=== PATIENT | female | born 1945 | race Caucasian/White ===

== ENCOUNTER → 2017-12-07 | Outpatient (CLI) | payer MEDICARE, MEDICAID ==
[~2017-12-07] MED LIST: CHLORTHALIDONE25 MG PO; CLONAZEPAM 0.50.5 M1 PO; COLACE100 MG PO; COUMADIN 2 MG TA2 M1 PO; CYMBALTA60 MG PO; DIOVAN160 MG PO; GEODON 80 MG CA80 MG PO; NEURONTIN600 MG PO; NORVASC5 MG PO; OMEPRAZOLE40 MG PO; OXCARBAZEPINE150 MG PO; VITAMIN D1000 UNI1 PO; WELLBUTRIN XL300 MG PO; ZANTAC 150MG T150 MG PO
== END ==
LOC: M.NUC 11-30 15:56
DX: K31.84 Gastroparesis (principal)

== ENCOUNTER 2018-05-18 12:29 | Inpatient (IN) | payer MEDICARE, MEDICAID ==
[2018-05-18] VITALS (12 sets, daily range): BP systolic 114–159; BP diastolic 38–57
[~2018-05-18] VITALS: Ht 152.4 cm; Wt 79.4 kg
[2018-05-18] MEDS ORDERED: CHLORTHALIDONE25 MG PO (12:49)
[2018-05-18] MEDS ORDERED: WELLBUTRIN XL300 MG PO (12:49)
[2018-05-18] MEDS ORDERED: NORVASC5 MG PO (12:49)
[2018-05-18] MEDS ORDERED: VITAMIN D1000 UNI1 PO (12:49)
[2018-05-18] MEDS ORDERED: OMEPRAZOLE40 MG PO (12:50)
[2018-05-18] MEDS ORDERED: CYMBALTA60 MG PO (12:50)
[2018-05-18] MEDS ORDERED: COLACE100 MG PO (12:50)
[2018-05-18] MEDS ORDERED: NEURONTIN600 MG PO (12:50)
[2018-05-18] MEDS ORDERED: GEODON 80 MG CA80 MG PO (12:51)
[2018-05-18] MEDS ORDERED: DIOVAN160 MG PO (12:51)
[2018-05-18] MEDS ORDERED: ZANTAC 150MG T150 MG PO (12:51)
[2018-05-18] MEDS ORDERED: COUMADIN 2 MG TA2 M1 PO (12:51)
[2018-05-18 13:24] LABS: URINE BILIRUBIN NEGATIVE (Negative); URINE BLOOD NEGATIVE (Negative); URINE CLARITY CLEAR; URINE COLOR YELLOW; URINE GLUCOSE-RANDOM NEGATIVE (Negative); URINE KETONES NEGATIVE (Negative); URINE LEUKOCYTES-REFLEX NEGATIVE (Negative); URINE NITRITE-REFLEX NEGATIVE (Negative); URINE PROTEIN NEGATIVE (Negative); URINE UROBILINOGEN 0.2 E.U./dl (0.2-1.0)
[2018-05-18 13:26] LABS: ABSOLUTE BASOPHILS 0.1 thou/uL (0.0-0.2); ABSOLUTE LYMPHOCYTES 1.8 thou/uL (0.8-5.3); ABSOLUTE MONOCYTES 0.5 thou/uL (0.0-1.2); ABSOLUTE NEUTROPHILS 8.5 thou/uL (1.6-8.1); BASOPHILS 0.6 %; EOSINOPHILS 0.2 %; HEMATOCRIT 32.3 % (37.0-47.0); HEMOGLOBIN 10.5 gm/dL (12.0-15.0); LYMPHOCYTES 16.9 %; MCH 22.7 pg (26.0-34.0); MCHC 32.5 g/dL (28.0-37.0); MCV 69.9 fL (80.0-100.0); MONOCYTES 4.4 %; MPV 6.4 fl. (7.2-11.1); NUCLEATED RBCS 0 /100WBC; PLATELET COUNT* 544 thou/uL (150-400); POLYS 77.9 %; RBC 4.62 mil/uL (4.20-5.00); RDW-CV 21.4 % (10.5-14.5); WBC 10.9 thou/uL (4.0-11.0)
[2018-05-18 13:33] LABS: ANION GAP 7 mmol/L (7-16); BUN 6 mg/dL (7-18); CALCIUM 9.2 mg/dL (8.5-10.1); CHLORIDE 73 mmol/L (98-107); CO2 33 mmol/L (21-32); CREATININE 0.9 mg/dL (0.6-1.3); GLUCOSE 103 mg/dL (70-99)
[2018-05-18 13:34] LABS: POTASSIUM 2.5 mmol/L (3.5-5.1); SODIUM 113 mmol/L (136-145)
[2018-05-18 13:40] LABS: ALBUMIN 3.5 g/dL (3.4-5.0); ALKALINE PHOSPHATASE 95 U/L (46-116); SGOT 20 U/L (15-37); SGPT 18 U/L (30-65); TOTAL BILIRUBIN 0.4 mg/dL (<0.1-1.0); TOTAL PROTEIN 7.2 g/dL (6.4-8.2); TROPONIN-I LEVEL <0.06 ng/mL (<0.06)
[2018-05-18 13:53] LABS: INR 2.7; PROTIME 27.9 Seconds (9.20-11.50)
[2018-05-18 14:02] LABS: ANISOCYTOSIS 1+; HYPOCHROMASIA 1+; MICROCYTES 1+; PLATELET ESTIMATE INCREASED
[2018-05-18 17:43] LABS: POTASSIUM 2.3 mmol/L (3.5-5.1)
[2018-05-18 20:53] LABS: CALCIUM 8.6 mg/dL (8.5-10.1); CREATININE 0.7 mg/dL (0.6-1.3); MAGNESIUM 1.6 mg/dL (1.8-2.4)
[2018-05-18 20:55] LABS: POTASSIUM 2.5 mmol/L (3.5-5.1)
[2018-05-19] VITALS (17 sets, daily range): BP systolic 86–145; BP diastolic 32–58
[2018-05-19 01:55] LABS: CALCIUM 8.8 mg/dL (8.5-10.1); CREATININE 0.6 mg/dL (0.6-1.3); MAGNESIUM 2.1 mg/dL (1.8-2.4)
[2018-05-19 01:56] LABS: POTASSIUM 3.9 mmol/L (3.5-5.1)
[2018-05-19 07:24] LABS: CALCIUM 8.5 mg/dL (8.5-10.1); CREATININE 0.7 mg/dL (0.6-1.3); POTASSIUM 4.8 mmol/L (3.5-5.1)
[2018-05-19 10:31] LABS: CALCIUM 8.6 mg/dL (8.5-10.1); CREATININE 0.7 mg/dL (0.6-1.3); MAGNESIUM 1.8 mg/dL (1.8-2.4); POTASSIUM 4.7 mmol/L (3.5-5.1)
--- NOTE | 2018-05-19 12:33 | EKG ---
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: Donald STEPHENSON : 1945 Requested By: Marcia Munroe Order Number: [id number] MD: Paras Garcia Measurements Intervals Redig Rate: 75 P: 51 ID: 200 QRS: 37 QRSD: 126 T: 39 QT: 442 QTc: 494 Interpretive Statements Sinus rhythm Nonspecific intraventricular conduction delay Abnormal inferior Q waves Borderline repolarization abnormality No previous ECG available for comparison Electronically Signed On 05-19-2018 12:33:05 MACHINE STEAK TENDERIZER by Paras Garcia [email or web address] <ELECTRONICALLY SIGNED> By: Paras Garcia MD, FACC 05/19/18 1233 1242 1242 Paras Garcia MD, FAC /EPI
[2018-05-19 12:56] LABS: CALCIUM 8.6 mg/dL (8.5-10.1); CREATININE 0.6 mg/dL (0.6-1.3); MAGNESIUM 1.9 mg/dL (1.8-2.4); POTASSIUM 4.4 mmol/L (3.5-5.1)
[2018-05-19 16:11] LABS: CALCIUM 8.9 mg/dL (8.5-10.1); CREATININE 0.7 mg/dL (0.6-1.3); MAGNESIUM 1.9 mg/dL (1.8-2.4); POTASSIUM 4.4 mmol/L (3.5-5.1)
[2018-05-19 19:21] LABS: CALCIUM 9.3 mg/dL (8.5-10.1); CREATININE 0.6 mg/dL (0.6-1.3); MAGNESIUM 1.9 mg/dL (1.8-2.4); POTASSIUM 4.5 mmol/L (3.5-5.1)
[2018-05-20] VITALS (10 sets, daily range): BP systolic 93–146; BP diastolic 45–73
[2018-05-20] MEDS ORDERED: OXCARBAZEPINE150 MG PO (10:19)
[2018-05-20] MEDS ORDERED: CYMBALTA60 MG PO (10:20)
[2018-05-20] MEDS ORDERED: CLONAZEPAM 0.50.5 M1 PO (10:21)
[2018-05-21 01:51] VITALS: BP 147/56
[2018-05-21 11:52] VITALS: BP 119/50
[2018-05-21 16:29] VITALS: BP 105/49
[2018-05-21 20:12] VITALS: BP 89/52
[2018-05-22] VITALS (8 sets, daily range): BP systolic 117–165; BP diastolic 48–56
[2018-05-23] VITALS: BP 128/31
[2018-05-23 04:00] VITALS: BP 128/43
[2018-05-23 06:01] LABS: PROTIME 20.6 Seconds (9.20-11.50)
[2018-05-23 08:28] VITALS: BP 138/42
[2018-05-23 11:18] VITALS: BP 138/42
[2018-05-23 11:55] VITALS: BP 138/42
[2018-05-23 12:00] VITALS: BP 132/52
--- NOTE | 2018-05-23 12:57 | CON ---
[facility] [address] [place] [address] CONSULTATION Name: RENATO PARKINSON Room: [address] IN .R.#: [id number] Admission: 05/18/18 Attend Phys: Gorge Allred MD Discharge: Date of : 47 Report #: [id number] THIS REPORT FOR: //name// CC: Gorge Brothers DATE OF SERVICE: 05/19/2018 NEPHROLOGY CONSULTATION CONSULTING PHYSICIAN: Gorge Allred M.D. REASON FOR NEPHROLOGY CONSULTATION: Severe hyponatremia. REASON FOR ADMISSION: Dizziness and weakness for the past 5 days. HISTORY OF PRESENT ILLNESS: This is a 72-year-old female with past medical history of bipolar disorder. She is a poor historian. She states that she has had hyponatremia in the past, which got better with IV fluids; hypertension; TIA; CVA; GERD and atrial fibrillation. She came in with dizziness and weakness for the past 5 days. The patient has also been having a lot of falls at home. She was found to have a sacrococcygeal fracture as well as a right rib fracture, but it was stated that right rib fracture could have been chronic in nature. She states that she drinks a lot of water and she does not eat much at home because she is just not hungry very much. So when she came in to the hospital, she was found to have initially a sodium of 113, which later went down to 111. We do not have a urine osmolality, but her urine sodium was 38. She had to be given some hypertonic saline yesterday and her sodium has improved to 116 this morning. She was also hypokalemic with a potassium of 2.5, which has improved to 4.8 today. In addition to other medications, she takes Geodon, losartan and chlorthalidone at home. She does live at home alone. ALLERGIES: No known drug allergies. REVIEW OF SYSTEMS: As mentioned in the history of present illness and she is just currently feeling very tired. MEDICATIONS: Her home medications, which include, amlodipine, bupropion, chlorthalidone, cholecalciferol, losartan, folic acid, docusate, duloxetine, gabapentin, ranitidine, warfarin and ziprasidone. PAST MEDICAL AND SURGICAL HISTORY: Includes bipolar disorder, hyponatremia, bilateral knee replacement, cholecystectomy, hysterectomy, hypertension, COPD, asthma, strokes and multiple TIAs. FAMILY HISTORY: [place] [address] CONSULTATION Name: RENATO PARKINSON Room: [address]#: [id number] Admission: 05/18/18 Attend Phys: Gorge Allred MD Discharge: Date of : 47 Report #: [id number] SOCIAL HISTORY: She does not smoke, take alcohol or use illicit drugs. PHYSICAL EXAMINATION: VITAL SIGNS: Blood pressure is 113/56, respiratory rate is 14, pulse rate is 77, temperature is 36.8 and pulse ox is 95% on room air. GENERAL: She is awake and alert, just slow to respond. She seems to be oriented x 3. HEAD, EYES, EARS, NOSE AND THROAT: Mucous membranes are moist. NECK: There is no JVD. CHEST: Clear to auscultation bilateral. No crackles or wheezing. CARDIOVASCULAR: S1, S2 normal. No murmurs or rubs. ABDOMEN: Soft, nondistended and nontender. Bowel sounds are present. EXTREMITIES: There is no lower extremity edema, symmetrical lower extremities. NEUROLOGICAL FUNCTION: She is slow to respond. She is moving all her extremities. PSYCHIATRIC: Her affect seems to be quite flat. LABORATORY DATA: Sodium is 116 this morning, it was 113 on admission yesterday and then went down to 111. At 03:00 p.m. yesterday, her was 2.5 when she came in and now it is 4.8. Her hemoglobin is 10.3. Other labs were reviewed and her creatinine was 0.7. Her urine sodium was 38 and serum uric acid was 2.5. IMAGING DATA: Sacrococcygeal x-ray, head CT and chest x-ray were reviewed. Her current inpatient medications, they were also reviewed. ASSESSMENT: 1. Likely emnag-xg-vaxowrb hyponatremia; baseline sodium is not known. Sodium was as low as 111. When she came in yesterday, her sodium was 113. Sodium went down to 111 at 03:00 p.m. yesterday and then went up to 117 after hypertonic saline. So she had to be given some D5 water boluses to bring the sodium down and it is 116 this morning. Poor solute intake and high fluid intake as well as chlorthalidone, ARB, Geodon and Cymbalta contributing. All these medications are on hold for now. Once her sodium is better, we can re-introduce at least Geodon. 2. Hypokalemia, which is because of chlorthalidone as well as poor oral intake; it is improving, 4.8 now. 3. History of bipolar disorder. 4. Hypertension. Blood pressure is controlled. 5. Falls and sacrococcygeal fracture and right rib fracture. PLAN: 1. Fluid restriction, 1 liter a day. 2. Urine sodium and serum uric acid all pointing towards more likely syndrome [place] [address] CONSULTATION Name: RENATO PARKINSON Room: [address] ADM IN M.R.#: [id number] Admission: 05/18/18 Attend Phys: Gorge Allred MD Discharge: Date of : 47 Report #: [id number] of inappropriate antidiuretic hormone and Cymbalta, chlorthalidone, ziprasidone and losartan all contributing. 3. Keep holding all these medications for now and once her sodium is better, we can try to re-introduce at least the ziprasidone. Once her sodium is improved to 120, we can start doing that. 4. Keep checking sodium every 3 hours while she is awake today and then nursing is to call me if the sodium drops by any point or if it increases for more than 3 points with each subsequent check. 5. Goal increase in sodium should not be more than 60 mEq in a 24-hour time span. That means her goal today is to raise it to 119 by this afternoon. 6. Potassium is already improved. 7. I have added salt tablets 2 grams 3 times a day. Thank you for this consultation. We will continue to follow along with you. I discussed the plan with the patient as well as the patient's nurse as well as Dr. Allred. <ELECTRONICALLY SIGNED> By: Gabbie Alonzo MD 05/23/18 1257 [id number] cherelle Mace
== END 2018-05-23 13:05 | disposition home health service (06) | DRG 644 ==
LOC: M.ERS 12:29 → M.ICU 13:55 → M.2W 13:55 → M.TBA-ER 13:55 → M.2W 15:36 → M.ICU 16:15 → M.2W 05-22 06:38
PROVIDERS: Internal Medicine; Nurse Practitioner Family
DX: E22.2 Syndrome of inappropriate secretion of antidiuretic hormone (principal); D68.59 Other primary thrombophilia; Z96.653 Presence of artificial knee joint, bilateral; I10 Essential (primary) hypertension; J44.9 Chronic obstructive pulmonary disease, unspecified; J45.909 Unspecified asthma, uncomplicated; F31.9 Bipolar disorder, unspecified; E87.6 Hypokalemia; K21.9 Gastro-esophageal reflux disease without esophagitis; I48.91 Unspecified atrial fibrillation; D50.9 Iron deficiency anemia, unspecified; R53.81 Other malaise; Z90.49 Acquired absence of other specified parts of digestive tract; Z90.710 Acquired absence of both cervix and uterus; Z86.73 Personal history of transient ischemic attack (TIA), and cerebral infarction without residual deficits; Z79.01 Long term (current) use of anticoagulants; Z79.899 Other long term (current) drug therapy

== ENCOUNTER 2018-05-29 11:05 | Inpatient (IN) | payer MEDICARE, MEDICAID ==
[~2018-05-29] VITALS: Ht 154.9 cm; Wt 78.0 kg
[2018-05-29 11:10] VITALS: BP 145/69
[2018-05-29 12:25] LABS: ABSOLUTE LYMPHOCYTES 1.2 thou/uL (0.8-5.3); ABSOLUTE MONOCYTES 0.2 thou/uL (0.0-1.2); ABSOLUTE NEUTROPHILS 7.4 thou/uL (1.6-8.1); BASOPHILS 0.2 %; HEMATOCRIT 33.8 % (37.0-47.0); HEMOGLOBIN 10.6 gm/dL (12.0-15.0); LYMPHOCYTES 13.1 %; MCH 22.9 pg (26.0-34.0); MCHC 31.5 g/dL (28.0-37.0); MCV 72.7 fL (80.0-100.0); MONOCYTES 2.7 %; MPV 7.1 fl. (7.2-11.1); NUCLEATED RBCS 0 /100WBC; PLATELET COUNT* 724 thou/uL (150-400); RBC 4.65 mil/uL (4.20-5.00); RDW-CV 23.5 % (10.5-14.5); WBC 8.8 thou/uL (4.0-11.0)
[2018-05-29 12:31] LABS: CALCIUM 9.8 mg/dL (8.5-10.1); CREATININE 0.8 mg/dL (0.6-1.3); POTASSIUM 3.5 mmol/L (3.5-5.1)
[2018-05-29 12:35] LABS: ALBUMIN 3.9 g/dL (3.4-5.0); MAGNESIUM 1.9 mg/dL (1.8-2.4); TOTAL BILIRUBIN 0.5 mg/dL (<0.1-1.0); TOTAL PROTEIN 7.9 g/dL (6.4-8.2)
[2018-05-29 12:56] LABS: BE 0.1 mmol/L (-2 to +3); HCO3 24.1 mmol/L (22.0-26.0); PCO2 36.4 mmHg (35.0-45.0); PO2 79.9 mmHg (75.0-100.0); pH 7.438 (7.340-7.450)
[2018-05-29 13:06] LABS: APTT 53.7 Seconds (25.0-31.3); PROTIME 20.7 Seconds (9.20-11.50)
[2018-05-29 13:24] LABS: HYPOCHROMASIA 1+; PLATELET ESTIMATE INCREASED
[2018-05-29 13:25] LABS: ANISOCYTOSIS 1+; MICROCYTES 1+
[2018-05-29 13:56] LABS: URINE BILIRUBIN NEGATIVE (Negative); URINE BLOOD NEGATIVE (Negative); URINE CLARITY CLEAR; URINE COLOR YELLOW; URINE GLUCOSE-RANDOM NEGATIVE (Negative); URINE KETONES 2+ (Negative); URINE LEUKOCYTES-REFLEX NEGATIVE (Negative); URINE NITRITE-REFLEX NEGATIVE (Negative); URINE PROTEIN TRACE (Negative); URINE UROBILINOGEN 0.2 E.U./dl (0.2-1.0)
[2018-05-29 14:55] VITALS: BP 148/88
[2018-05-29 15:14] VITALS: BP 177/64
[2018-05-29 15:16] LABS: AMP/METHAMP Negative (Negative); BARBITURATES Negative (Negative); BENZODIAZEPINES Negative (Negative); COCAINE Negative (Negative); METHADONE Negative (Negative); OPIATES Negative (Negative); PCP Negative (Negative); THC Negative (Negative)
[2018-05-29 16:00] VITALS: BP 174/64
--- NOTE | 2018-05-29 16:57 | NUR ---
PT ADMITTED TO ROOM 205 VIA CART FROM ED AT APPROXIMATELY 1510. REPORT RECEIVED FROM TYRA ERWIN. PT ADMITTED WITH AMS. FAMILY AT BEDSIDE ASSISTING WITH HISTORY. PT A&0X3, FORGETFUL AND CONFUSED, VERY DROWSY. PT STATES SHE NEEDS SOMETHING TO RELAX HER. PT FALLING ASLEEP DURING ADMISSION QUESTIONS AND UNABLE TO KEEP EYES OPEN. PT TRACING SR ON THE B2B SALES PROFESSIONAL. HISTORY OF AFIB. PT ON RA SAT 98%. PT DENIES ANY PAIN OR SHORTNESS OF BREATH AT THIS TIME. PT UP WITH 1 ASSIST. HOME MEDICATIONS RECONCILED AND RESTARTED- REFER TO EMAR. PSYCH CONSULT ORDERED- UNABLE TO COMPLETE AT THIS TIME DUE TO PT DROWSINESS/LETHARGY. NEURO CONSULT IN PLACE FOR AMS. ADMISSION ASSESSMENT AND HISTORY COMPLETED. REFER TO CHARTING.PT ORIENTED TO ROOM AND CALL LIGHT. PT ON 1500 ML FLUID RESTRICTION. SKIN INTACT. MEDICATIONS PER MAR. PT REPOSITIONS SELF WITH REMINDERS. HOURLY ROUNDING OBSERVED. BED IN LOW POSITION. BED ALARM IN PLACE. FALL PRECAUTIONS IN PLACE. CALL LIGHT WITHIN REACH. WILL CONTINUE PLAN OF CARE.
[2018-05-29 20:00] VITALS: BP 126/51
--- NOTE | 2018-05-29 20:00 | NUR ---
RECEIVED REPORT AND ASSUMED CARE OF PT, ASSESSMENT COMPLETED. PT VERY DROWSY, AWAKENS BUT IMMEDIATELY BACK TO SLEEP. UNABLE TO ANSWER WHAT MONTH AND YEAR WE ARE IN. TELEMETRY ON SHOWING SR WITH OCC PAC. WILL CONT TO MONITOR AND ASSIST NEEDED.
[2018-05-30] VITALS: BP 125/47
[2018-05-30 04:00] VITALS: BP 129/76
[2018-05-30 04:56] LABS: HEMATOCRIT 34.5 % (37.0-47.0); HEMOGLOBIN 10.2 gm/dL (12.0-15.0); MCH 22.8 pg (26.0-34.0); MCHC 29.7 g/dL (28.0-37.0); MCV 76.8 fL (80.0-100.0); MPV 7.1 fl. (7.2-11.1); RBC 4.49 mil/uL (4.20-5.00); RDW-CV 23.7 % (10.5-14.5); WBC 8.6 thou/uL (4.0-11.0)
[2018-05-30 05:15] LABS: CALCIUM 9.9 mg/dL (8.5-10.1); CREATININE 0.8 mg/dL (0.6-1.3); MAGNESIUM 2.1 mg/dL (1.8-2.4); POTASSIUM 3.8 mmol/L (3.5-5.1)
--- NOTE | 2018-05-30 06:23 | NUR ---
AWAKE, SITTING UP IN BED WATCHING TV. AMBULATED WITH ASSIST AND STEADY GAIT TO BR DURING NIGHT. STATES SHE FEELS BETTER JUST COLD. TELEMETRY CONT TO SHOW SR. HS GOALS OF REST AND SAFETY ACHIEVED. HOURLY ROUNDING OBSERVED.
[2018-05-30 07:58] VITALS: BP 133/53
--- NOTE | 2018-05-30 11:04 | NUR ---
CM ASSESSMENT: VISITED WITH PT IN ROOM. PT STATES SHE WAS BROUGHT TO THE HOSPITAL YESTERDAY "BECAUSE I WASN'T TAKING MY BIPOLAR MEDS" PT STATES SHE DOES NOT REMEMBER MUCH OF THE LAST FEW DAYS AND DOES NOT REMEMBER WHY SHE WAS NOT TAKING MEDS. DENIES SI/HI. PT DRIVES AND DOES NOT HAVE ANY DME NEEDS. LIVES ALONE BUT SON FREQUENTLY CHECKS ON HER
[2018-05-30 11:08] VITALS: BP 111/48
--- NOTE | 2018-05-30 12:28 | NUR ---
ASSUMED CARE OF PT AT 0730. PT RESTING IN BED. PT A&0X3, FORGETFUL AT TIMES. PT MORE ALERT THIS MORNING, TALKATIVE. PT TRACING SR ON THE DINKEY BRAKEMAN. ON RA SAT UPPER 90'S. PT DENIES ANY PAIN OR SHORTNESS OF BREATH AT THIS TIME. PT UP WITH 1 ASSIST, IMPULIVE AT TIMES. PT GOAL FOR TODAY IS PSYCH CONSULT, NEURO CONSULT AND PT AND OT EVAL AND TREAT. AM ASSESSMENT CHARTED. MEDICATIONS PER AUG. PT REPOSITIONS SELF WITH REMINDERS. HOURLY ROUNDING OBSERVED. BED IN LOW POSITION. BED ALARM IN PLACE. FALL PRECAUTIONS IN PLACE. CALL LIGHT WITHIN REACH. WILL CONTINUE PLAN OF CARE.
[2018-05-30 16:35] VITALS: BP 113/42
--- NOTE | 2018-05-30 17:48 | CON ---
[address] [address] CONSULTATION Name: RENATO PARKINSON Room: [address] IN .R.#: [id number] Admission: 05/29/18 Attend Phys: Henry Cadet MD Discharge: Date of : 47 Report #: [id number] THIS REPORT FOR: //name// CC: Henry Brothers HISTORY OF PRESENT ILLNESS: The patient is a 72-year-old female who was brought to the Emergency Room by her son for altered mental status. Apparently, the patient had been drowsy. She had not been eating or taking her medications properly. The patient has no recollection of these events. She states that she was told that the last time she had taken her medication was 05/26/2018. The patient was recently admitted to [facility] on 05/18/2018 and released 5 days later. The patient lives by herself. On admission, the patient's vital signs were stable. There was no evidence of a urinary tract infection. Her sodium level was low, most likely secondary to carbamazepine, although this is a low dose that she is taking. PAST MEDICAL HISTORY: Bipolar disorder, hypertension, chronic obstructive pulmonary disease, asthma, TIA/stroke, schizophrenia, irritable bowel syndrome. PAST SURGICAL HISTORY: Bilateral knee replacement, cholecystectomy and hysterectomy. MEDICATIONS: Amlodipine 5 mg daily, vitamin D 1000 units b.i.d., warfarin 2 mg daily, Geodon 80 mg daily, bupropion XL 300 mg daily, Colace 100 mg daily, Cymbalta 60 mg daily, gabapentin 600 mg b.i.d., omeprazole daily, ranitidine 150 mg at bedtime, Diovan 160 mg daily, oxcarbazepine 150 mg b.i.d., clonazepam 0.25 mg t.i.d. ALLERGIES: ASPIRIN. PHYSICAL EXAMINATION: VITAL SIGNS: Temperature 36.9, pulse rate 96, respiratory rate 18, blood pressure 133/53, bedside pulse oximetry 97% on room air. LABORATORY WORK: Hematology: White blood cell count 8.6, hemoglobin 10.2, hematocrit 34.5, platelet count 489,000. INR 2. Urinalysis, trace protein, 2+ ketones. Chemistry on admission, the sodium was 128, today it is 131. Potassium 3.8, chloride 96, carbon dioxide 24, BUN 11, creatinine 0.8, GFR 71, glucose 79. Lactic acid 1.8, calcium 9.9, magnesium 2.1, total bilirubin 0.5, AST 15, ALT 19, alkaline phosphatase 85, total protein 7.9, albumin 3.9, vitamin B12 440. Toxicology screen negative. IMAGING: CT scan of the head is normal. NEUROLOGIC: Cranial nerves 2-12 are grossly intact[place] [address] CONSULTATION Name: RENATO PARKINSON Room: [address] IN [facility]#: [id number] Admission: 05/29/18 Attend Phys: Henry Cadet MD Discharge: Date of : 47 Report #: [id number] symmetrical strength in all 4 extremities with tone and bulk normal. Reflexes are symmetrical throughout. Coordination demonstrates no evidence of dysmetria. IMPRESSION: The patient had an episode of encephalopathy. This may have been secondary to medication withdrawal. She is on low dose clonazepam amongst other medications. She has had a CT scan of the brain, which is unremarkable. At this point, I do not think she needs any further neurodiagnostic testing. Perhaps the patient needs to be watched more closely with regard to how she is taking her medication. She is on oxcarbazepine at home and this can cause hyponatremia, so perhaps a different medication should be considered by her psychiatrist. At this point, I have no further suggestions and will sign off. If there is any change, please feel free to contact me. <ELECTRONICALLY SIGNED> By: Josie Dahl DO 05/30/18 1748 1103 [id number] Dahl DO /tulio
--- NOTE | 2018-05-30 18:26 | NUR ---
NO ACUTE CHANGES THROUGHOUT SHIFT. REFER TO CHARTING. PT PROGRESSING TOWARDS GOALS. PT UP TO CHAIR FOR MEALS. WORKED WITH PT AND OT TODAY-TOLERATED WELL. PT HAD TELE PSYCH CONSULT WITH RECOMMENDATIONS TO TAPER OFF KLONOPIN. PT DENIES ANY PAIN OR SHORTNESS OF BREATH. CONTINUES TO TRACE SR ON THE INSPECTOR AND CLERK. ON RA SAT UPPER 90'S. PT UP WITH 1 ASSIST, IMPULSIVE AT TIMES. MEDICATIONS PER MAR. PT REPOSITIONS SELF WITH REMINDERS. HOURLY ROUNDING OBSERVED. BED IN LOW POSITION. BED ALARM IN PLACE. FALL PRECAUTIONS IN PLACE. CALL LIGHT WITHIN REACH. WILL CONTINUE PLAN OF CARE.
[2018-05-30 20:30] VITALS: BP 128/50
[2018-05-31] VITALS (11 sets, daily range): BP systolic 86–149; BP diastolic 30–59
--- NOTE | 2018-05-31 02:35 | NUR ---
PT CARE ASSUMED AT 1930. SAT MAINTAINED IN RA. ALERT AND ORIENTED X3 AND FORGETFUL. CALL LIGHT WITHIN REACH AND BED IN LOW POSITION. PT BP 88/38, PT ASYMPTOMATIC, INFORMED DR. PADRON, FOLLOWED DR SAENZ. IV FLUID STARTED ORDERED. IV SITE CLOTTED OFF, NEW IV LINE INSERTED. PT STATED, SHE DOESN'T REMEMBERS UNTIL LAST NIGHT AFTER May.
[2018-05-31 05:34] LABS: HEMATOCRIT 30.6 % (37.0-47.0); HEMOGLOBIN 9.6 gm/dL (12.0-15.0); MCH 23.4 pg (26.0-34.0); MCHC 31.5 g/dL (28.0-37.0); MCV 74.5 fL (80.0-100.0); MPV 6.8 fl. (7.2-11.1); RBC 4.1 mil/uL (4.20-5.00); RDW-CV 23.9 % (10.5-14.5)
[2018-05-31 05:38] LABS: INR 2.1; PROTIME 21.7 Seconds (9.20-11.50)
[2018-05-31 05:51] LABS: CALCIUM 9.2 mg/dL (8.5-10.1); TOTAL BILIRUBIN 0.2 mg/dL (<0.1-1.0); TOTAL PROTEIN 5.7 g/dL (6.4-8.2)
--- NOTE | 2018-05-31 11:14 | NUR ---
Cm spoke with liaison from [facility], they went out to admit Pt to their services, but Pt ended up returning to the hospital. Plan for Pt to admit to [facility] at [facility]. DC orders, facesheet and H&P will need to be faxed to [phone], p:[phone]
[2018-06-01] VITALS: BP 105/40
[2018-06-01 04:00] VITALS: BP 103/50
--- NOTE | 2018-06-01 07:15 | NUR ---
CHANGE OF SHIFT, BEDSIDE REPORT GIVEN PATIENT SEEN AT BEDSIDE, IN BED RESTING ASSUMED PATIENT CARE
[2018-06-01 08:00] VITALS: BP 128/49
[2018-06-01 12:00] VITALS: BP 144/52
[2018-06-01] MEDS ORDERED: VALSARTAN40 MG PO (12:28)
[2018-06-01] MEDS ORDERED: ZIPRASIDONE HCL20 M1 PO (12:28)
[2018-06-01] MEDS ORDERED: CLONAZEPAM 0.50.5 M1 PO (12:28)
--- NOTE | 2018-06-01 13:54 | NUR ---
CIRCULAR SAW OPERATOR FAXED PATIENT'S D/C ORDERS TO [facility]. PATIENT TO D/C HOME TODAY WITH [facility]. CM WILL REMAIN AVIALABLE TO ASSIST AND FOLLOW NEEDED.
[2018-06-01 15:33] VITALS: BP 144/52
--- NOTE | 2018-06-01 15:59 | NUR ---
PATIENT DISCHARGED TO HOME ALL DC INFORMATION GIVEN, ACKNOLEDGED, SIGNED PAPERWORK GIVEN IV AND HEART MONITOR REMOVED PERSONAL BELONGINGS RETURNED ASSISED OUT VIA WC GOOD CONDITION TO WAITING CAR
== END 2018-06-01 16:02 | disposition home health service (06) | DRG 644 ==
LOC: M.ERS 11:05 → M.2W 13:22 → M.TBA-ER 13:22 → M.2W 15:23
PROVIDERS: Internal Medicine; Personal Emergency Response Attendant; ADMIT Internal Medicine
DX: E22.2 Syndrome of inappropriate secretion of antidiuretic hormone (principal); D68.59 Other primary thrombophilia; G93.40 Encephalopathy, unspecified; E86.9 Volume depletion, unspecified; F31.9 Bipolar disorder, unspecified; I10 Essential (primary) hypertension; J44.9 Chronic obstructive pulmonary disease, unspecified; J45.909 Unspecified asthma, uncomplicated; D69.6 Thrombocytopenia, unspecified; Z96.653 Presence of artificial knee joint, bilateral; I48.91 Unspecified atrial fibrillation; Z87.891 Personal history of nicotine dependence; Z90.49 Acquired absence of other specified parts of digestive tract; Z90.710 Acquired absence of both cervix and uterus; Z86.73 Personal history of transient ischemic attack (TIA), and cerebral infarction without residual deficits; Z88.6 Allergy status to analgesic agent

== ENCOUNTER 2018-06-13 18:08 | Emergency (ER) | payer MEDICARE, MEDICAID ==
[~2018-06-13] VITALS: Ht 149.9 cm; Wt 79.8 kg
[~2018-06-13 18:08] MED LIST changes: +VALSARTAN40 MG PO; +ZIPRASIDONE HCL20 M1 PO
[2018-06-13 19:05] LABS: ABSOLUTE BASOPHILS 0.1 thou/uL (0.0-0.2); ABSOLUTE EOSINOPHILS 0.1 thou/uL (0.0-0.7); ABSOLUTE LYMPHOCYTES 2.4 thou/uL (0.8-5.3); ABSOLUTE MONOCYTES 0.5 thou/uL (0.0-1.2); ABSOLUTE NEUTROPHILS 5.7 thou/uL (1.6-8.1); BASOPHILS 0.9 %; EOSINOPHILS 0.9 %; HEMATOCRIT 27.6 % (37.0-47.0); HEMOGLOBIN 8.4 gm/dL (12.0-15.0); LYMPHOCYTES 27.5 %; MCH 22.5 pg (26.0-34.0); MCHC 30.4 g/dL (28.0-37.0); MCV 74.2 fL (80.0-100.0); MONOCYTES 5.9 %; MPV 6.8 fl. (7.2-11.1); NUCLEATED RBCS 0 /100WBC; PLATELET COUNT* 613 thou/uL (150-400); POLYS 64.8 %; RBC 3.71 mil/uL (4.20-5.00); WBC 8.8 thou/uL (4.0-11.0)
[2018-06-13 19:11] LABS: CALCIUM 8.9 mg/dL (8.5-10.1); CREATININE 0.9 mg/dL (0.6-1.3); INR 1.9; POTASSIUM 3.9 mmol/L (3.5-5.1); PROTIME 19.5 Seconds (9.20-11.50)
[2018-06-13 19:18] LABS: URINE BILIRUBIN NEGATIVE (Negative); URINE BLOOD NEGATIVE (Negative); URINE CLARITY CLEAR; URINE COLOR YELLOW; URINE GLUCOSE-RANDOM NEGATIVE (Negative); URINE KETONES NEGATIVE (Negative); URINE LEUKOCYTES-REFLEX TRACE (Negative); URINE NITRITE-REFLEX NEGATIVE (Negative); URINE PROTEIN NEGATIVE (Negative); URINE SPECIFIC GRAVITY 1.015 (1.005-1.030); URINE UROBILINOGEN 0.2 E.U./dl (0.2-1.0)
[2018-06-13 19:21] LABS: ALBUMIN 2.9 g/dL (3.4-5.0); TOTAL BILIRUBIN 0.1 mg/dL (<0.1-1.0); TOTAL PROTEIN 6.2 g/dL (6.4-8.2)
[2018-06-13 19:23] LABS: BACTERIA-REFLEX None Seen /HPF (None Seen); CASTS None Seen /LPF (None Seen); CRYSTALS None Seen /LPF (None Seen); SQUAMOUS NONE SEEN /LPF (0-3); URINE RBC None Seen /HPF (0-2); URINE WBC-REFLEX None Seen /HPF (0-5)
[2018-06-13 20:00] VITALS: BP 159/51
== END 2018-06-13 20:05 | disposition home or self-care (01) ==
LOC: M.ERS 18:08
PROVIDERS: Nurse Practitioner Family
DX: R51 Headache (principal); I10 Essential (primary) hypertension; J44.9 Chronic obstructive pulmonary disease, unspecified; I48.91 Unspecified atrial fibrillation; K58.9 Irritable bowel syndrome, unspecified; F20.9 Schizophrenia, unspecified; Z88.6 Allergy status to analgesic agent; F31.9 Bipolar disorder, unspecified; Z96.653 Presence of artificial knee joint, bilateral; Z90.49 Acquired absence of other specified parts of digestive tract; Z90.710 Acquired absence of both cervix and uterus; Z86.73 Personal history of transient ischemic attack (TIA), and cerebral infarction without residual deficits

== ENCOUNTER 2020-03-06 09:34 | Emergency (ER) | payer OTHER, MEDICAID ==
[~2020-03-06] VITALS: Ht 152.4 cm; Wt 79.8 kg
[~2020-03-06 09:34] MED LIST changes: +NEXIUM40 MG PO; -OMEPRAZOLE40 MG PO; +WELLBUTRIN SR200 MG PO; -WELLBUTRIN XL300 MG PO
[2020-03-06] MEDS ORDERED: GEODON 80 MG CA80 MG PO (09:51)
[2020-03-06] MEDS ORDERED: DIOVAN160 MG PO (09:53)
[2020-03-06] MEDS ORDERED: LEVO-T50 MCG PO (09:54)
[2020-03-06] MEDS ORDERED: XANAX 0.5 MG0.5 M1 PO (09:54)
[2020-03-06] MEDS ORDERED: TRAZODONE HCL50 MG PO (09:55)
[2020-03-06 10:27] LABS: URINE BILIRUBIN NEGATIVE (Negative); URINE BLOOD NEGATIVE (Negative); URINE CLARITY CLEAR; URINE COLOR YELLOW; URINE GLUCOSE-RANDOM NEGATIVE (Negative); URINE KETONES NEGATIVE (Negative); URINE LEUKOCYTES-REFLEX NEGATIVE (Negative); URINE NITRITE-REFLEX NEGATIVE (Negative); URINE PROTEIN NEGATIVE (Negative); URINE SPECIFIC GRAVITY <= 1.005 (1.005-1.030); URINE UROBILINOGEN 0.2 E.U./dl (0.2-1.0)
[2020-03-06] MEDS ORDERED: ULTRAM 50MG TAB50 MG PO (12:46)
[2020-03-06 13:10] VITALS: BP 149/79
== END 2020-03-06 13:12 | disposition home or self-care (01) ==
LOC: M.ERS 09:34
PROVIDERS: Personal Emergency Response Attendant
DX: M54.5 Low back pain (principal); R53.83 Other fatigue; R19.7 Diarrhea, unspecified; I10 Essential (primary) hypertension; J44.9 Chronic obstructive pulmonary disease, unspecified; I48.91 Unspecified atrial fibrillation; Z79.01 Long term (current) use of anticoagulants; Z86.73 Personal history of transient ischemic attack (TIA), and cerebral infarction without residual deficits; Z79.899 Other long term (current) drug therapy; Z88.6 Allergy status to analgesic agent

== ENCOUNTER → 2020-03-19 | Outpatient (CLI) | payer OTHER, MEDICAID ==
[~2020-03-19] MED LIST changes: +LEVO-T50 MCG PO; +TRAZODONE HCL50 MG PO; +ULTRAM 50MG TAB50 MG PO; +XANAX 0.5 MG0.5 M1 PO
== END ==
LOC: M.ULTRA 10:00
PROVIDERS: ATTEND Registered Nurse Diabetes Educator
DX: R10.2 Pelvic and perineal pain (principal)

== ENCOUNTER 2021-01-05 10:06 | Emergency (ER) | payer OTHER, MEDICAID ==
[~2021-01-05] VITALS: Ht 149.9 cm; Wt 80.7 kg
[2021-01-05] MEDS ORDERED: ZANAFLEX4 MG PO (14:01)
[2021-01-05 14:21] VITALS: BP 141/84
== END 2021-01-05 14:22 | disposition home or self-care (01) ==
LOC: M.ERS 10:06
DX: M51.36 Other intervertebral disc degeneration, lumbar region (principal); M53.3 Sacrococcygeal disorders, not elsewhere classified; I10 Essential (primary) hypertension; J44.9 Chronic obstructive pulmonary disease, unspecified; K58.9 Irritable bowel syndrome, unspecified; I48.91 Unspecified atrial fibrillation; Z88.6 Allergy status to analgesic agent; Z90.710 Acquired absence of both cervix and uterus; Z90.49 Acquired absence of other specified parts of digestive tract